=== PATIENT | female | born 1965 | race Two or more races ===

== ENCOUNTER 2017-01-16 07:18 | Emergency (ER) | payer MEDICAID ==
[~2017-01-16] VITALS: Ht 157.5 cm; Wt 54.4 kg
[~2017-01-16 07:18] MED LIST: DIAZ5TAB3 PO; DOCU100C24 PO; HYDR-4663 PO
[2017-01-16] MEDS ORDERED: SODIUM CHLORIDE 0.9% 1,000 ML IV ONE ×2 (09:15→09:20)
[2017-01-16 09:54] LABS: Basophils # (auto) 0 uL; Basophils % (auto) 0.2 % (0.0-2.0); CONDITION Y; Eosinophils # (auto) 0.1 uL; Eosinophils % (auto) 0.9 % (0.0-7.0); Hematocrit 40.4 % (36.0-46.0); Hemoglobin 13.7 g/dL (12.2-16.2); Lymphocytes % (auto) 11.8 % (10.0-50.0); Mean Corpuscular Hemoglobin 29.6 pg (28.0-32.0); Mean Corpuscular Hgb Conc. 33.8 g/dL (32.0-36.0); Mean Corpuscular Volume 87.6 fL (80.0-100.0); Mean Platelet Volume 9.8 fL (7.4-10.4); Monocytes # (auto) 0.3 uL; Monocytes % (auto) 3.2 % (0.0-12.0); Neutrophils # (auto) 7.4 uL; Neutrophils % (auto) 83.9 % (37.0-80.0); Platelet Count (auto) 227 10^3/uL (140-450); Red Cell Distribution Width 13.7 % (11.6-16.0); White Blood Cell 8.9 10^3/uL (4.4-10.8)
[2017-01-16 10:07] LABS: INR 0.97 (0.9-1.15); Partial Thromboplastin Time 25.2 sec (22.64-33.71); Prothrombin Time 10.6 sec (9.37-12.3)
[2017-01-16 10:22] LABS: Albumin 3.8 g/dL (3.4-5.0); BUN/Creatinine Ratio 23.1; Bilirubin, Total 0.4 mg/dL (0.2-1.0); Calcium 8.9 mg/dL (8.5-10.1); Potassium 4.4 mmol/L (3.5-5.1); Total Protein 7.5 g/dL (6.4-8.2)
[2017-01-16 10:45] LABS: Urine Bilirubin Negative (Negative); Urine Blood Negative /uL (Negative); Urine Color Yellow (Yellow); Urine Glucose Normal (Normal); Urine Ketone Negative (Negative); Urine Mucus FEW (None Seen); Urine Nitrite Negative (Negative); Urine RBC 1 /hpf (0 - 4); Urine Squamous Epithelial Cell FEW /hpf (<5); Urine Urobilinogen Normal (Negative)
[2017-01-16] MEDS ORDERED: cefTRIAXone 1GM/50ML D5W 50 ML IV ONE (12:30)
[2017-01-16 12:49] VITALS: BP 109/56
== END 2017-01-16 13:33 | disposition home or self-care (01) ==
LOC: EDBD 07:18 → ER 07:18 → EDUNIT# 07:18 → ER 13:33
DX: S01.01XA Laceration without foreign body of scalp, initial encounter (principal); L03.311 Cellulitis of abdominal wall; R55 Syncope and collapse; R10.30 Lower abdominal pain, unspecified; N39.0 Urinary tract infection, site not specified; Z90.710 Acquired absence of both cervix and uterus; X58.XXXA Exposure to other specified factors, initial encounter; Y93.89 Activity, other specified; Y99.8 Other external cause status; Y92.89 Other specified places as the place of occurrence of the external cause
CPT/HCPCS: 12001; 36415; 70450; 80053; 81001; 82962; 84484; 85025; 85610; 85730; 93005; 96361; 96365; 99285; J0696; J7030

== ENCOUNTER 2017-09-20 14:24 | Emergency (ER) | payer MEDICAID ==
[~2017-09-20] VITALS: Ht 157.5 cm; Wt 55.3 kg
[~2017-09-20 14:24] MED LIST changes: -HYDR-4663 PO; +HYDR-4683 PO
[2017-09-20 15:57] LABS: Basophils # (auto) 0.1 uL; Basophils % (auto) 0.9 % (0.0-2.0); Eosinophils # (auto) 0 uL; Eosinophils % (auto) 0.6 % (0.0-7.0); Hematocrit 39.5 % (36.0-46.0); Hemoglobin 13.5 g/dL (12.2-16.2); Lymphocytes % (auto) 15.5 % (10.0-50.0); Mean Corpuscular Hemoglobin 29.6 pg (28.0-32.0); Mean Corpuscular Hgb Conc. 34.1 g/dL (32.0-36.0); Mean Corpuscular Volume 86.8 fL (80.0-100.0); Monocytes # (auto) 0.3 uL; Monocytes % (auto) 4.3 % (0.0-12.0); Neutrophils # (auto) 4.8 uL; Neutrophils % (auto) 78.7 % (37.0-80.0); Nucleated Red Blood Cells % 0.1 %; Platelet Count (auto) 195 10^3/uL (140-450); Red Blood Cells 4.55 10^6/uL (4.0-5.20); Red Cell Distribution Width 13.8 % (11.8-14.3); White Blood Cell 6.1 10^3/uL (4.4-10.8)
[2017-09-20 16:18] LABS: BUN/Creatinine Ratio 21.6; Bilirubin, Total 0.4 mg/dL (0.2-1.0); Calcium 8.5 mg/dL (8.5-10.1); Potassium 3.5 mmol/L (3.5-5.1); Total Protein 7.7 g/dL (6.4-8.2)
[2017-09-20 19:17] VITALS: BP 110/63
[2017-09-20] MEDS ORDERED: HYDROcodone-ACET 5/325MG TAB PO PRN (20:30)
[2017-09-20] MEDS ORDERED: ACETAMINOPHEN 500 MG TAB PO PRN (20:30)
[2017-09-20] MEDS ORDERED: ONDANSETRON HCL 4 MG/2 ML VIAL IV PRN (20:30)
[2017-09-20] MEDS ORDERED: AMITRIPTYLINE HCL 25 MG TAB PO SCH (22:00)
== END 2017-09-20 21:25 | disposition left against medical advice (07) ==
LOC: EDBD 14:24 → ER 14:24
DX: R55 Syncope and collapse (principal); R53.1 Weakness; Z90.710 Acquired absence of both cervix and uterus; Z53.29 Procedure and treatment not carried out because of patient's decision for other reasons
CPT/HCPCS: 36415; 70450; 71046; 80053; 84484; 85025; 93005

== ENCOUNTER 2017-10-30 14:14 | Emergency (ER) | payer MEDICAID ==
[2017-10-30] MEDS ORDERED: SODIUM CHLORIDE 0.9% 1,000 ML IVB ONE (14:16)
[2017-10-30 14:58] LABS: Basophils # (auto) 0 uL; Basophils % (auto) 0.8 % (0.0-2.0); Eosinophils # (auto) 0 uL; Eosinophils % (auto) 0.8 % (0.0-7.0); Hematocrit 40.4 % (36.0-46.0); Hemoglobin 13.3 g/dL (12.2-16.2); Lymphocytes # (auto) 1.2 uL; Mean Corpuscular Hemoglobin 29.1 pg (28.0-32.0); Mean Corpuscular Volume 88.1 fL (80.0-100.0); Monocytes # (auto) 0.3 uL; Monocytes % (auto) 5.7 % (0.0-12.0); Neutrophils # (auto) 3.9 uL; Neutrophils % (auto) 70.7 % (37.0-80.0); Platelet Count (auto) 214 10^3/uL (140-450); Red Blood Cells 4.59 10^6/uL (4.0-5.20); Red Cell Distribution Width 13.4 % (11.8-14.3); White Blood Cell 5.5 10^3/uL (4.4-10.8)
[2017-10-30 16:18] LABS: Albumin 3.9 g/dL (3.4-5.0); Anion Gap 10 (5-15); Blood Urea Nitrogen 9 mg/dL (7-18); Calcium 8.9 mg/dL (8.5-10.1); Carbon Dioxide 25 mmol/L (21-32); Chloride 106 mmol/L (98-107); Glucose 86 mg/dL (74-106); Magnesium 2.1 mg/dL (1.6-2.6); Potassium 3.9 mmol/L (3.5-5.1); Sodium 141 mmol/L (136-145)
[2017-10-30 16:20] LABS: Alanine Aminotransferase 19 U/L (13-56); Aspartate Aminotransferase 22 U/L (15-37); BUN/Creatinine Ratio 13.4; GFR African American 119 mL/min; GFR Non-African American 99 mL/min
[2017-10-30 16:25] LABS: Alkaline Phosphatase 65 U/L (45-117); Bilirubin, Total 0.8 mg/dL (0.2-1.0); Total Protein 7.2 g/dL (6.4-8.2)
[2017-10-30] MEDS ORDERED: LORazepam 2MG/ML-1ML VIAL IV ONE (16:30)
[2017-10-30 18:01] VITALS: BP 106/57
== END 2017-10-30 18:11 | disposition home or self-care (01) ==
LOC: ER 14:14 → EDBD 14:14 → ER 18:11
DX: R42 Dizziness and giddiness (principal); R11.0 Nausea; M19.90 Unspecified osteoarthritis, unspecified site; Z79.899 Other long term (current) drug therapy; Z90.710 Acquired absence of both cervix and uterus
CPT/HCPCS: 36415; 80053; 83735; 84484; 85025; 93005; 94761; 96374; 99285; J2060

== ENCOUNTER 2017-11-22 16:07 | Emergency (ER) | payer MEDICAID ==
[~2017-11-22] VITALS: Ht 157.5 cm; Wt 54.4 kg
[2017-11-22 16:15] VITALS: BP 130/77
[2017-11-22 16:50] LABS: Basophils # (auto) 0.1 uL; Basophils % (auto) 1.1 % (0.0-2.0); Eosinophils # (auto) 0.1 uL; Eosinophils % (auto) 1.6 % (0.0-7.0); Hematocrit 40.1 % (36.0-46.0); Hemoglobin 13.7 g/dL (12.2-16.2); Lymphocytes # (auto) 1.8 uL; Lymphocytes % (auto) 35.4 % (10.0-50.0); Mean Corpuscular Hemoglobin 29.5 pg (28.0-32.0); Mean Corpuscular Volume 86.8 fL (80.0-100.0); Monocytes # (auto) 0.4 uL; Monocytes % (auto) 7.1 % (0.0-12.0); Neutrophils # (auto) 2.8 uL; Neutrophils % (auto) 54.8 % (37.0-80.0); Nucleated Red Blood Cells % 0.1 %; Platelet Count (auto) 190 10^3/uL (140-450); Red Blood Cells 4.62 10^6/uL (4.0-5.20); Red Cell Distribution Width 13.1 % (11.8-14.3); White Blood Cell 5.1 10^3/uL (4.4-10.8)
[2017-11-22 17:23] LABS: BUN/Creatinine Ratio 17.6; Calcium 9.3 mg/dL (8.5-10.1); Magnesium 1.9 mg/dL (1.6-2.6); Potassium 3.6 mmol/L (3.5-5.1)
[2017-11-22 17:25] LABS: Bilirubin, Total 0.4 mg/dL (0.2-1.0); Total Protein 7.6 g/dL (6.4-8.2)
== END 2017-11-22 19:12 | disposition left against medical advice (07) ==
LOC: ER 16:07
DX: F41.9 Anxiety disorder, unspecified (principal); R53.1 Weakness; M19.90 Unspecified osteoarthritis, unspecified site; Z90.710 Acquired absence of both cervix and uterus; Z53.29 Procedure and treatment not carried out because of patient's decision for other reasons
CPT/HCPCS: 36415; 80053; 83735; 85025; 93005; 94761

== ENCOUNTER 2017-12-08 12:03 | Emergency (ER) | payer MEDICAID ==
[~2017-12-08] VITALS: Ht 157.5 cm; Wt 54.4 kg
[2017-12-08 14:20] LABS: Basophils # (auto) 0 uL; Basophils % (auto) 0.5 % (0.0-2.0); Eosinophils # (auto) 0.1 uL; Eosinophils % (auto) 1.2 % (0.0-7.0); Hematocrit 41.5 % (36.0-46.0); Hemoglobin 13.8 g/dL (12.2-16.2); Lymphocytes # (auto) 1.4 uL; Lymphocytes % (auto) 26.3 % (10.0-50.0); Mean Corpuscular Hemoglobin 28.7 pg (28.0-32.0); Mean Corpuscular Hgb Conc. 33.4 g/dL (32.0-36.0); Mean Corpuscular Volume 85.9 fL (80.0-100.0); Monocytes # (auto) 0.3 uL; Monocytes % (auto) 5.3 % (0.0-12.0); Neutrophils # (auto) 3.5 uL; Neutrophils % (auto) 66.7 % (37.0-80.0); Platelet Count (auto) 171 10^3/uL (140-450); Red Blood Cells 4.83 10^6/uL (4.0-5.20); Red Cell Distribution Width 13.2 % (11.8-14.3); White Blood Cell 5.3 10^3/uL (4.4-10.8)
[2017-12-08 14:32] LABS: Albumin 3.6 g/dL (3.4-5.0); Calcium 8.7 mg/dL (8.5-10.1)
[2017-12-08 14:34] LABS: BUN/Creatinine Ratio 16.7
[2017-12-08 14:55] LABS: Bilirubin, Total 0.3 mg/dL (0.2-1.0); Total Protein 7.3 g/dL (6.4-8.2)
[2017-12-08 15:04] VITALS: BP 140/78
== END 2017-12-08 15:06 | disposition home or self-care (01) ==
LOC: ER 12:03
DX: F41.9 Anxiety disorder, unspecified (principal); R41.82 Altered mental status, unspecified; Z90.710 Acquired absence of both cervix and uterus
CPT/HCPCS: 36415; 80053; 82962; 85025; 93005